=== PATIENT | male | born 1965 | race Caucasian/White ===

== ENCOUNTER 2021-07-14 22:57 | Emergency (ER) | payer OTHER ==
[~2021-07-14] VITALS: Ht 182.9 cm; Wt 111.1 kg
[~2021-07-14 22:57] MED LIST: Norco 5-325 Ta1 EACH PO; Robaxin-750750 MG PO
[2021-07-14 23:24] LABS: BASOPHILS ABSOLUTE AUTO 0.03 K/mm3 (0.00-0.23); BASOPHILS PERCENT AUTO 0 % (0-2); EOSINOPHILS ABSOLUTE AUTO 0.14 K/mm3 (0.00-0.68); EOSINOPHILS PERCENT AUTO 1 % (0-6); Hemoglobin 13.7 g/dL (13.5-17.5); IMMATURE GRAN ABSOLUTE AUTO 0.06 K/mm3 (0.00-0.10); IMMATURE GRAN PERCENT AUTO 1 % (0-1); LYMPHOCYTES PERCENT AUTO 14 % (21-46); MONOCYTES ABSOLUTE AUTO 1.44 K/mm3 (0.16-1.47); MONOCYTES PERCENT AUTO 12 % (4-13); Mean Corpuscular HGB 30.4 pg (26.0-34.0); Mean Corpuscular HGB Conc 34.3 g/dL (31.5-36.5); Mean Corpuscular Volume 89 fL (80-100); NEUTROPHILS ABSOLUTE AUTO 9.12 K/mm3 (1.96-9.15); NEUTROPHILS PERCENT AUTO 73 % (41-73); RDW Coefficient Variation 11.7 % (11.7-14.2); RDW Standard Deviation 37.5 fL (35.1-46.3); Red Blood Cell Count 4.51 M/mm3 (4.30-5.90); White Blood Cell Count 12.49 K/mm3 (4.00-11.30)
[2021-07-14 23:27] LABS: Mean Platelet Volume 9.1 fL (9.1-12.4); Platelet Count 231 K/mm3 (150-400)
[2021-07-14 23:44] LABS: Alanine Aminotransfer (ALT/SGP 19 U/L (12-78); Albumin, Blood 3.5 g/dL (3.4-5.0); Albumin/Globulin Ratio 0.9 (0.8-1.8); Alk Phos 74 U/L (50-136); Anion Gap 7 mmol/L (6-16); Aspartate Aminotrans (AST/SGOT 24 U/L (12-37); Bilirubin, Total 1.1 mg/dL (0.1-1.0); Blood Urea Nitrogen 17 mg/dL (8-24); Bun/Creatinine Ratio 17.6 (12.0-20.0); CO2, Blood 23 mmol/L (21-32); Calcium, Blood 8.5 mg/dL (8.5-10.1); Chloride, Blood 105 mmol/L (98-108); Creatinine, Blood 0.97 mg/dL (0.60-1.20); Globulin, Blood 3.8 g/dL (2.2-4.0); Glomerular Filtration Rate >60 (60-); Glucose, Blood 127 mg/dL (70-99); Potassium, Blood 3.9 mmol/L (3.5-5.5); Sodium, Blood 135 mmol/L (136-145); Total Protein, Blood 7.3 g/dL (6.4-8.2); Troponin I <0.015 ng/mL (0.000-0.040)
[2021-07-15 00:40] LABS: SARS-Cov-2 (COVID-19) PCR, MMC NEGATIVE (NEGATIVE)
[2021-07-15] MEDS ORDERED: AZIT250 PO (01:01)
[2021-07-15] MEDS ORDERED: PRED20 PO (01:01)
== END 2021-07-15 02:17 | disposition home or self-care (01) ==
LOC: ER 22:57
PROVIDERS: Physician Assistant
DX: J44.1 Chronic obstructive pulmonary disease with (acute) exacerbation (principal); Z20.822 Contact with and (suspected) exposure to COVID-19; Z88.8 Allergy status to other drugs, medicaments and biological substances; Z87.891 Personal history of nicotine dependence
CPT/HCPCS: 71101; 80053; 84484; 85025; 93005; 93010; 94640; 96361; 96374; 96375; 99285-25; A9270; J2270; J2405; J2930; J7030; U0004

== ENCOUNTER → 2022-04-05 | Emergency (ER) | payer OTHER ==
[~2022-04-05] VITALS: Ht 182.9 cm; Wt 102.1 kg
[~2022-04-05] MED LIST changes: +AZIT250 PO; +PRED20 PO
[2022-04-05 06:34] LABS: BASOPHILS ABSOLUTE AUTO 0.03 K/mm3 (0.00-0.23); BASOPHILS PERCENT AUTO 0 % (0-2); EOSINOPHILS ABSOLUTE AUTO 0.07 K/mm3 (0.00-0.68); EOSINOPHILS PERCENT AUTO 1 % (0-6); Hematocrit 46.8 % (37.0-53.0); Hemoglobin 15.9 g/dL (13.5-17.5); IMMATURE GRAN ABSOLUTE AUTO 0.03 K/mm3 (0.00-0.10); IMMATURE GRAN PERCENT AUTO 0 % (0-1); LYMPHOCYTES ABSOLUTE AUTO 1.66 K/mm3 (0.84-5.20); LYMPHOCYTES PERCENT AUTO 20 % (21-46); MONOCYTES ABSOLUTE AUTO 0.73 K/mm3 (0.16-1.47); MONOCYTES PERCENT AUTO 9 % (4-13); Mean Corpuscular HGB 29.3 pg (26.0-34.0); Mean Corpuscular Volume 86 fL (80-100); NEUTROPHILS ABSOLUTE AUTO 5.63 K/mm3 (1.96-9.15); NEUTROPHILS PERCENT AUTO 69 % (41-73); Platelet Count 272 K/mm3 (150-400); RDW Coefficient Variation 11.8 % (11.7-14.2); RDW Standard Deviation 37.4 fL (35.1-46.3); Red Blood Cell Count 5.42 M/mm3 (4.30-5.90); White Blood Cell Count 8.15 K/mm3 (4.00-11.30)
[2022-04-05 06:51] LABS: Albumin, Blood 4.4 g/dL (3.4-5.0); Albumin/Globulin Ratio 1.3 (0.8-1.8); Bilirubin, Total 1.4 mg/dL (0.1-1.0); Bun/Creatinine Ratio 19.6 (12.0-20.0); Calcium, Blood 9.6 mg/dL (8.5-10.1); Creatinine, Blood 0.77 mg/dL (0.60-1.20); Globulin, Blood 3.3 g/dL (2.2-4.0); Potassium, Blood 3.6 mmol/L (3.5-5.5); Total Protein, Blood 7.7 g/dL (6.4-8.2)
== END ==
LOC: ER 06:03
PROVIDERS: Emergency Medicine
DX: R07.89 Other chest pain (principal); I10 Essential (primary) hypertension; J44.9 Chronic obstructive pulmonary disease, unspecified; F41.0 Panic disorder [episodic paroxysmal anxiety]; I25.2 Old myocardial infarction; Z87.891 Personal history of nicotine dependence; Z88.8 Allergy status to other drugs, medicaments and biological substances
CPT/HCPCS: 36415; 71045; 80053; 84484; 85025; 93005; 93010; J2060

== ENCOUNTER 2022-12-13 06:20 | Day surgery (SDC) | payer OTHER ==
[~2022-12-13] VITALS: Ht 182.9 cm; Wt 98.6 kg
[~2022-12-13 06:20] MED LIST changes: +ASPI81CH PO; +Atarax10 MG PO; +Buspirone HCl15 MG PO; +Cyclobenzaprine10 MG PO; +GABA300 PO; +OMEP20ER PO; +PRAZ5 PO; +Prozac40 MG PO; +SUMA25 PO; +VITAMIN D310 MC4 PO
--- NOTE | 2022-12-13 10:15 | NUR ---
Patient up to Ambulate independently. Gait steady. Discharge instructions reviewed with patient. Patient verbalizes understanding. Copy given to patient to take home. Patient States Post-Procedure ride home has been arranged. Discharged via wheelchair to private car for ride home. ABD BINDER PLACED, OK'D PER DR CONDON. PT REPORTS FEELING READY TO GO HOME. REPORTS PAIN CONTROLLED TO GO HOME, DECLINED SECOND PAIN MED.
== END 2022-12-13 10:15 | disposition home or self-care (01) ==
LOC: ORSCMMR 06:20 → ORD 08:00 → ORSCMMR 10:15
PROVIDERS: Surgery
PROC: 3E0M05Z Introduction of Adhesion Barrier into Peritoneal Cavity, Open Approach (ICD-10-PCS; principal; 2022-12-13 08:00)
PROC: 0WUF0JZ Supplement Abdominal Wall with Synthetic Substitute, Open Approach (ICD-10-PCS; principal; 2022-12-13 08:00)
DX: K42.9 Umbilical hernia without obstruction or gangrene (principal); I10 Essential (primary) hypertension; G47.33 Obstructive sleep apnea (adult) (pediatric); K21.9 Gastro-esophageal reflux disease without esophagitis; I25.2 Old myocardial infarction; Z79.899 Other long term (current) drug therapy; G40.909 Epilepsy, unspecified, not intractable, without status epilepticus
CPT/HCPCS: A9270; C1781; J0690; J1100; J2250; J2370; J2405; J2704; J2795; J3010; J7120

== ENCOUNTER 2025-01-27 19:55 | Emergency (ER) | payer OTHER ==
[~2025-01-27] VITALS: Ht 188 cm; Wt 88.5 kg
[2025-01-27 20:01] VITALS: BP 156/111
[2025-01-27 21:40] LABS: BASOPHILS ABSOLUTE AUTO 0.04 K/mm3 (0.00-0.23); BASOPHILS PERCENT AUTO 1 % (0-2); EOSINOPHILS ABSOLUTE AUTO 0.06 K/mm3 (0.00-0.68); EOSINOPHILS PERCENT AUTO 1 % (0-6); Hemoglobin 16.5 g/dL (13.5-17.5); IMMATURE GRAN ABSOLUTE AUTO 0.02 K/mm3 (0.00-0.10); IMMATURE GRAN PERCENT AUTO 0 % (0-1); LYMPHOCYTES ABSOLUTE AUTO 1.93 K/mm3 (0.84-5.20); LYMPHOCYTES PERCENT AUTO 35 % (21-46); MONOCYTES ABSOLUTE AUTO 0.47 K/mm3 (0.16-1.47); MONOCYTES PERCENT AUTO 9 % (4-13); Mean Corpuscular HGB 31.9 pg (26.0-34.0); Mean Corpuscular HGB Conc 35.1 g/dL (31.5-36.5); Mean Corpuscular Volume 91 fL (80-100); Mean Platelet Volume 8.9 fL (9.1-12.4); NEUTROPHILS ABSOLUTE AUTO 2.99 K/mm3 (1.96-9.15); NEUTROPHILS PERCENT AUTO 54 % (41-73); Platelet Count 363 K/mm3 (150-400); RDW Coefficient Variation 14.5 % (11.7-14.2); RDW Standard Deviation 48.4 fL (35.1-46.3); Red Blood Cell Count 5.17 M/mm3 (4.30-5.90); White Blood Cell Count 5.51 K/mm3 (4.00-11.30)
[2025-01-27 21:53] LABS: Magnesium, Blood 2.1 mg/dL (1.6-2.4)
[2025-01-27 21:54] LABS: Albumin/Globulin Ratio 1.2 (0.8-1.8); Bilirubin, Total 0.5 mg/dL (0.1-1.0); Bun/Creatinine Ratio 5.1 (12.0-20.0); Calcium, Blood 8.4 mg/dL (8.5-10.1); Creatinine, Blood 0.79 mg/dL (0.60-1.20); Globulin, Blood 3.2 g/dL (2.2-4.0); Potassium, Blood 2.9 mmol/L (3.5-5.5); Total Protein, Blood 7.2 g/dL (6.4-8.2)
[2025-01-27] MEDS ORDERED: Potassium Chloride 20 MEQ/15 ML UDC PO ONE (22:05)
[2025-01-27] MEDS ORDERED: Potassium Chl 20MEQ/Water100ML 100 ML IV ONE (22:05)
== END 2025-01-27 23:52 | disposition home or self-care (01) ==
LOC: ER 19:55
PROVIDERS: Student in an Organized Health Care Education/Training Program
DX: Z02.89 Encounter for other administrative examinations (principal); E87.6 Hypokalemia; E83.42 Hypomagnesemia; J44.9 Chronic obstructive pulmonary disease, unspecified; I25.2 Old myocardial infarction; Z88.8 Allergy status to other drugs, medicaments and biological substances; Z79.899 Other long term (current) drug therapy
CPT/HCPCS: 80053; 83735; 85025; 99283; A9270; J3480

== ENCOUNTER 2025-02-12 17:22 | Emergency (ER) | payer OTHER ==
[~2025-02-12] VITALS: Ht 182.9 cm; Wt 88.5 kg
[2025-02-12] MEDS ORDERED: Ibuprofen 600 MG Tab PO ONE (18:55)
[2025-02-12] MEDS ORDERED: Acetaminophen 500 MG Tab PO ONE (18:55)
[2025-02-12] MEDS ORDERED: IBUP600 PO (20:41)
[2025-02-12 21:05] VITALS: BP 132/76
== END 2025-02-12 21:12 | disposition home or self-care (01) ==
LOC: ER 17:22
DX: S93.402A Sprain of unspecified ligament of left ankle, initial encounter (principal); X50.0XXA Overexertion from strenuous movement or load, initial encounter; J44.9 Chronic obstructive pulmonary disease, unspecified; Z88.8 Allergy status to other drugs, medicaments and biological substances; Z79.890 Hormone replacement therapy; Z79.899 Other long term (current) drug therapy; Z79.1 Long term (current) use of non-steroidal anti-inflammatories (NSAID); Z79.2 Long term (current) use of antibiotics; Z79.51 Long term (current) use of inhaled steroids
CPT/HCPCS: 73600; 99284-25; A9270

== ENCOUNTER 2025-03-11 17:23 | Emergency (ER) | payer OTHER ==
[~2025-03-11] VITALS: Ht 182.9 cm; Wt 90.7 kg
[~2025-03-11 17:23] MED LIST changes: +IBUP600 PO
[2025-03-11] MEDS ORDERED: Acetaminophen 500 MG Tab PO ONE (17:35)
[2025-03-11] MEDS ORDERED: Ketorolac Tromethamine 15mg Vial IM ONE (17:35)
[2025-03-11] MEDS ORDERED: OxyCODONE HCL 5 MG TAB PO PRN (17:35)
[2025-03-11] MEDS ORDERED: Lidocaine 4% 1 Patch TOP ONE (17:35)
[2025-03-11 17:36] VITALS: BP 126/105
[2025-03-11] MEDS ORDERED: RX Prepack 6 Tabs Oxycodone 5mg UD ONE (19:45)
[2025-03-11] MEDS ORDERED: OxyCODONE HCL 5 MG TAB PO ONE (19:50)
[2025-03-11] MEDS ORDERED: OXAYDO5 M1 PO (20:07)
[2025-03-11] MEDS ORDERED: NARCAN4 M1 (20:07)
== END 2025-03-11 20:35 | disposition home or self-care (01) ==
LOC: ER 17:23
DX: R07.89 Other chest pain (principal); Z88.8 Allergy status to other drugs, medicaments and biological substances; Z79.899 Other long term (current) drug therapy; Z86.73 Personal history of transient ischemic attack (TIA), and cerebral infarction without residual deficits
CPT/HCPCS: 71101; 96372; 99283-25; A9270; J1885